=== PATIENT | female | born 1975 | race Caucasian/White ===

== ENCOUNTER → 2018-03-24 | Outpatient (CLI) | payer BC ==
--- NOTE | 2018-03-26 10:21 | MM ---
Reason for exam: screening (asymptomatic). Last mammogram was performed 5 years and 11 months ago. Physical Findings: A clinical breast exam by your physician is recommended on an annual basis and results should be correlated with mammographic findings. MG Screening Mammo w CAD Bilateral CC and MLO view(s) were taken. Prior study comparison: April 30, 2012, mammogram. The breast tissue is extremely dense which could obscure a lesion on mammography. Finding: There is a 5 mm microlobulated oval mass located 10 cm from the nipple in the upper quadrant, posterior position of the left breast, may be summation density. New finding since April 30, 2012. ASSESSMENT: Incomplete: need additional imaging evaluation, BI-RAD 0 RECOMMENDATION: Special view mammogram of the left breast. If lesion persists on supplemental views, image directed ultrasound is recommended. [facility] will attempt to contact patient to return for supplemental views and ultrasound if indicated.
== END | disposition home or self-care (01) ==
LOC: RADMAMWWP 16:41
PROVIDERS: ATTEND Family Medicine
DX: Z12.31 Encounter for screening mammogram for malignant neoplasm of breast (principal)
CPT/HCPCS: 77067

== ENCOUNTER → 2018-04-06 | Outpatient (CLI) | payer BC ==
--- NOTE | 2018-04-07 08:50 | MM ---
Reason for exam: additional evaluation requested from abnormal screening. Last mammogram was performed less than 1 month ago. Physical Findings: Nurse did not find any significant physical abnormalities on exam. MG Work Up Mamm w CAD LT CC and MLO view(s) were taken of the left breast. Prior study comparison: March 24, 2018, bilateral MG screening mammo w CAD. April 30, 2012, mammogram. The breast tissue is extremely dense which could obscure a lesion on mammography. Superior asymmetry appears as a lymph node with fat centrally. No suspicious abnormality. These results were verbally communicated with the patient and result sheet given to the patient on 04/06/18. ASSESSMENT: Benign, BI-RAD 2 RECOMMENDATION: Return to routine screening mammogram schedule for both breasts.
== END | disposition home or self-care (01) ==
LOC: RADMAMWWP 14:32
PROVIDERS: ATTEND Family Medicine
DX: R92.8 Other abnormal and inconclusive findings on diagnostic imaging of breast (principal)
CPT/HCPCS: 77065

== ENCOUNTER → 2020-03-29 | Outpatient (CLI) | payer BC ==
--- NOTE | 2020-04-02 08:45 | MM ---
Reason for exam: screening (asymptomatic). Last mammogram was performed 2 years ago. Physical Findings: A clinical breast exam by your physician is recommended on an annual basis and results should be correlated with mammographic findings. MG 3D Screening Mammo W/Cad Bilateral CC and MLO view(s) were taken. Prior study comparison: April 06, 2018, left breast MG work up mamm w CAD LT. March 24, 2018, bilateral MG screening mammo w CAD. The breast tissue is extremely dense which could obscure a lesion on mammography. No significant changes when compared with prior studies. ASSESSMENT: Negative, BI-RAD 1 RECOMMENDATION: Routine screening mammogram of both breasts in 1 year.
== END | disposition home or self-care (01) ==
LOC: RADMAMWWP 15:08
PROVIDERS: ATTEND Family Medicine
DX: Z12.31 Encounter for screening mammogram for malignant neoplasm of breast (principal)
CPT/HCPCS: 77063; 77067

== ENCOUNTER → 2024-11-30 | Outpatient (CLI) | payer BC ==
--- NOTE | 2024-11-30 13:48 | CA ---
Stress Echo Report Kell Seaman Age: 49 Gender: F : 1975 Exam Date: 11/30/2024 09:53 Exam Location: [facility] Ht (in): 63 Wt (lb): 150 Ordering Physician: Kirsten Santos DO Referring Physician: Nona Anderson Director Staffing: ORLY Technologist Procedure CPT: Indication: R07.89 other chest pain ICD-9 Codes: Rhythm: Patient History: Chest pain and shortness of breath Cardiac Medications: Medications in past 24 hours: Contrast: Stress Results Protocol: Ashutosh Total dose(mL): Exercise Duration (min:sec): 10;[address] Depression (mm): Angina Score: Walker Score: METS: 11.5 Resting HR: 74 Resting BP: 126 / 96 Peak HR: 166 Peak BP: 176 / 95 Max Predicted HR: 172 97 % Max Predicted HR Target HR: 146 Double Product: 11581 Stress Summary: The patient's target heart rate was achieved BP Response: Reason for Termination: Reached target heart rate or work-load Cardiac Symptoms: No Symptoms ECG Analysis Resting ECG: Normal sinus rhythm, normal ECG Stress ECG: No abnormal ST/T wave changes with exercise Arrhythmia: None Echo Analysis Resting Echo: Normal resting echocardiogram. Peak Echo Analysis: Normal wall thickening and motion with decrease in the cavity size MEASUREMENTS (Male/Female) Normal Values CONCLUSIONS 1. Good exercise tolerance with normal electrocardiographic response to exercise 2. Next normal stress echocardiogram with no evidence of stress-induced ischemia. Dr. Skye Pardo MD (Electronically Signed) Final Date: 30 November 2024 13:47
== END | disposition home or self-care (01) ==
LOC: RADNMMAIN 09:31
PROVIDERS: ATTEND Family Medicine
DX: R07.89 Other chest pain (principal)
CPT/HCPCS: 93351

== ENCOUNTER → 2024-12-15 | Outpatient (CLI) | payer BC ==
--- NOTE | 2024-12-15 08:20 | US ---
EXAMINATION TYPE: US abdomen complete DATE OF EXAM: 12/15/2024 COMPARISON: NONE CLINICAL INDICATION: Female, 49 years old with history of R14.0 ABDOMINAL DISTENSION; Pt states bloat ing x 6 months TECHNIQUE: Grayscale and color Doppler imaging of the abdomen was performed. FINDINGS: EXAM MEASUREMENTS: Liver Length: 13.4 cm Gallbladder Wall: 0.5 cm CBD: 0.3 cm, color Doppler imaging was utilized to isolate the common bile duct for measurement. 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 Gallbladder: Lumen appeared filled with sludge, wall thickened Evidence for sonographic Taveras's sign: No CBD: wnl Spleen: wnl Right Kidney: wnl, No hydronephrosis, calculi or masses seen Left Kidney: No hydronephrosis, upper and lower pole gassed out, mid/lateral complex cystic lesion= 2.5 x 2.5 x 3.4 cm Upper IVC: wnl Abd Aorta: wnl IMPRESSION: 1. Thickened gallbladder wall. Sludge within the gallbladder. Correlate for acute cholecystitis. [facility], , 12/15/2024 8:18 AM
== END | disposition home or self-care (01) ==
LOC: RADUSWWP 06:56
PROVIDERS: ATTEND Family Medicine
DX: K82.8 Other specified diseases of gallbladder (principal); R14.0 Abdominal distension (gaseous)
CPT/HCPCS: 76700